=== PATIENT | male | born 1995 | race Caucasian/White ===

== ENCOUNTER 2021-01-02 15:44 | Emergency (ER) | payer BC, OTHER ==
[2021-01-02] MEDS ORDERED: FAMOTIDINE 20 MG/50 ML IVPB 20 MG/50 ML MG IVPB ONE ×2 (16:11→16:28)
[2021-01-02 16:29] VITALS: TEMP 98.3; BMI 26.2
[2021-01-02 16:37] LABS: BASO % 1.6 % (0-2.0); EOS % 0.9 % (0-4.5); HEMATOCRIT 46.1 % (35.4-49); HEMOGLOBIN 16.1 GM/dl (11.7-16.9); LYMPH % 26.2 % (8-40); MCH 31.4 pg (25.7-33.7); MEAN CELL VOLUME 89.7 fl (80-96); MEAN PLT VOLUME 7.9 fl (7.5-11.1); NEUT % 62.3 % (42.8-82.8); PLATELET COUNT 242 10^3/uL (134-434); RBC 5.13 M/mm3 (4.00-5.60); RDW 11.7 % (11.9-15.9); WHITE BLOOD COUNT 5.9 K/mm3 (4.0-10.8)
[2021-01-02 16:55] LABS: ALBUMIN 4.6 g/dl (3.4-5.0); BILIRUBIN,TOTAL 1.1 mg/dl (0.2-1); CALCIUM 9.2 mg/dl (8.5-10); CREATININE 0.9 mg/dl (0.55-1.3); TOT PROT 7.2 g/dl (6.4-8.2)
[2021-01-02 17:31] LABS: LIPASE 74 U/L (73-393)
[2021-01-02 18:03] VITALS: BP 126/79; PULSE 68
== END 2021-01-02 18:08 | disposition home or self-care (01) ==
LOC: FER 15:44
PROC: 3E033NZ Introduction of Analgesics, Hypnotics, Sedatives into Peripheral Vein, Percutaneous Approach (ICD-10-PCS; principal; 2021-01-02)
DX: F41.9 Anxiety disorder, unspecified (principal); K21.9 Gastro-esophageal reflux disease without esophagitis
CPT/HCPCS: 36415; 71045-TC-FY; 80053; 82550; 83690; 84484; 85025; 93005; 99284-25; C9803; U0003; U0005